=== PATIENT | male | born 1985 | race Caucasian/White ===

== ENCOUNTER 2019-07-20 08:43 | Emergency (ER) | payer BC ==
[~2019-07-20] VITALS: Ht 172.7 cm; Wt 61.2 kg
[2019-07-20] MEDS ORDERED: diphenhydrAMINE 50 MG/1 ML VIAL ONE (08:53)
[2019-07-20] MEDS ORDERED: methylPREDNISolone SOD SUCC 125 MG/2 ML VIAL ONE (08:53)
[2019-07-20] MEDS ORDERED: FAMOTIDINE. 20 MG/2 ML VIAL IV ONE ×2 (08:53→09:15)
--- NOTE | 2019-07-20 08:59 | NUR ---
ERMD at bedside for MSE
[2019-07-20] MEDS ORDERED: IV NORMAL SALINE 1000 ML BAG IV ONE (09:15)
[2019-07-20] MEDS ORDERED: diphenhydrAMINE 50 MG/1 ML VIAL IV ONE (09:15)
[2019-07-20] MEDS ORDERED: methylPREDNISolone SOD SUCC 125 MG/2 ML VIAL IV ONE (09:15)
--- NOTE | 2019-07-20 09:19 | NUR ---
1L NaCl infused completely and tolerated well.
--- NOTE | 2019-07-20 10:23 | NUR ---
Patient discharged to home in stable conditon. Written and verbal after care instructions given. Patient verbalizes understanding of instructions. IV removed. Catheter intact and site benign. Pressure and 4x4 gauze applied to site. No bleeding noted. Patient ambulated with stable gait.
[2019-07-20 10:28] VITALS: BP 128/77
== END 2019-07-20 10:29 | disposition home or self-care (01) ==
LOC: ER 08:43
DX: T45.2X5A Adverse effect of vitamins, initial encounter (principal); Z60.2 Problems related to living alone; Y92.89 Other specified places as the place of occurrence of the external cause
CPT/HCPCS: 96374; 96375; 99283; J1200; J2930; J3490; A4663; J7030